=== PATIENT | male | born 1975 | race Two or more races ===

== ENCOUNTER 2018-09-23 16:10 | Outpatient (CLI) | payer OTHER ==
[~2018-09-23] VITALS: Ht 182.9 cm; Wt 127.0 kg
== END 2018-09-23 16:20 | disposition home or self-care (01) ==
LOC: OFIC 805 16:10
DX: G47.33 Obstructive sleep apnea (adult) (pediatric) (principal); R06.83 Snoring; H92.02 Otalgia, left ear

== ENCOUNTER 2020-04-08 12:45 | Emergency (ER) | payer OTHER ==
[~2020-04-08] VITALS: Ht 182.9 cm; Wt 129.3 kg
[2020-04-08] MEDS ORDERED: NORVASC5 MG (13:58)
== END 2020-04-08 17:49 | disposition home or self-care (01) ==
LOC: ER 12:45
DX: N20.1 Calculus of ureter (principal)